=== PATIENT | female | born 1970 | race Caucasian/White ===

== ENCOUNTER 2017-01-16 12:59 | Emergency (ER) | payer BC ==
[~2017-01-16] VITALS: Ht 165.1 cm; Wt 67.4 kg
[2017-01-16] MEDS ORDERED: KEFLEX500 MG PO (16:08)
[2017-01-16] MEDS ORDERED: BACTRIM,SEPT1 TABLET PO (16:08)
[2017-01-16 16:28] VITALS: BP 126/71
== END 2017-01-16 16:32 | disposition home or self-care (01) ==
LOC: EME 12:59
PROC: 0H9TXZZ (ICD-10-PCS; principal; 2017-01-16)
DX: N61.1 Abscess of the breast and nipple (principal)
CPT/HCPCS: 99281; 99284